=== PATIENT | male | born 1960 | race Caucasian/White ===

== ENCOUNTER 2023-05-25 08:53 | Outpatient (CLI) | payer OTHER, SELFPAY ==
[2023-05-25 09:16] VITALS: PULSE 57; RESP 18; O2SAT 98
[2023-05-25] MEDS: albuterol 2.5 mg/3 mL Neb INHALATION (09:16)
[2023-05-25 09:21] VITALS: PULSE 53
== END 2023-05-25 08:54 | disposition home or self-care (01) ==
PROVIDERS: Visit Provider Nurse Practitioner Family
DX: J44.9 Chronic obstructive pulmonary disease, unspecified (principal)
CPT/HCPCS: 94060; J7613